=== PATIENT | male | born 1975 | race Caucasian/White ===

== ENCOUNTER 2016-08-17 21:33 | Emergency (ER) | payer SELFPAY ==
[~2016-08-17] VITALS: Ht 175.3 cm; Wt 90.5 kg
[2016-08-17 21:49] VITALS: BP 142/90; PULSE 71; RESP 16; TEMP 98.1; O2SAT 99
[2016-08-17 22:32] VITALS: BP 142/90; PULSE 71; RESP 16; TEMP 98.1; O2SAT 99
[2016-08-17] MEDS ORDERED: LOSA50TA PO (22:32)
[2016-08-17] MEDS ORDERED: AMLO10TA2 PO (22:35)
--- NOTE | 2016-08-17 22:35 | PD ---
HPI Chief Complaint: Hypertension Time Seen by Provider: 22:31 Travel History International Travel<30 days: No Contact w/Intl Traveler<30days: No Traveled to known affect area: No History of Present Illness HPI 41-year-old male from [place] here history of hypertension and running out of his losartan. Patient is unsure of his dose. She is requesting a refill as he is concerned about his blood pressure. Blood pressure in triage is 142/92. He is been having some headaches and hearing his pulse in his years. He denies any other issues. He does have history of hypercholesterol but no local primary care physician. He has no known drug allergies. PFS Social History Alcohol Use: No Tobacco Use: No Substance Use: No Review of Systems Except as stated in HPI: all other systems reviewed are Neg General / Constitutional: No: Fever Eyes: No: Visual changes HENT: No: Headaches Cardiovascular: No: Chest Pain or Discomfort Respiratory: No: Shortness of Breath Gastrointestinal: No: Abdominal Pain Genitourinary: No: Dysuria Musculoskeletal: No: Pain Skin: No Rash Neurologic: No: Weakness Psychiatric: No: Depression Endocrine: No: Polydipsia Hematologic/Lymphatic: No: Easy Bruising Physical Exam Narrative GENERAL: Patient appears in no acute distress. SKIN: Warm and dry. Normal color. Normal turgor. HEAD: Atraumatic. Normocephalic. EYES: Pupils equal and round. No scleral icterus. No injection or drainage. ENT: No nasal bleeding or discharge. Mucous membranes pink and moist. Pharynx is clear. Airway is patent. NECK: Trachea midline. Supple nontender. CARDIOVASCULAR: Regular rate and rhythm. RESPIRATORY: No accessory muscle use. Clear to auscultation. Breath sounds equal bilaterally. MUSCULOSKELETAL: Extremities without clubbing, cyanosis, or edema. No obvious deformities. NEUROLOGICAL: Awake and alert. No obvious cranial nerve deficits. Motor grossly within normal limits. Five out of 5 muscle strength in the arms and legs. Normal speech. PSYCHIATRIC: Appropriate mood and affect; insight and judgment normal. Data Data Last Documented VS Vital Signs Date Time Temp Pulse Resp B/P Pulse Ox O2 Delivery O2 Flow Rate FiO2 08/17/16 21:49 98.1 71 16 142/90 99 MDM Medical Decision Making Medical Screen Exam Complete: Yes Emergency Medical Condition: Yes Differential Diagnosis Hypertension. Hypercholesterolemia. Medication refill. Narrative Course Computer terminal operator is set up. Patient is medically stable at time of exam. Patient is given a prescription for amlodipine 10 mg daily #90. Patient referred to local primary care physician for further evaluation and treatment as needed. Patient can return with any problems as needed. Diagnosis Primary Impression: Encounter for medication refill Additional Impression: Hypertension Qualified Code: I10 - Essential hypertension Referrals: [facility] call for appointment Patient Instructions: 2 Gram Sodium Diet (GEN), General Instructions Additional Instructions: Patient is medically stable at time of exam. Patient is given a prescription for amlodipine 10 mg daily #90. Patient referred to local primary care physician for further evaluation and treatment as needed. Patient can return with any problems as needed. Disposition: 01 DISCHARGE HOME Condition: Stable Param López August 17, 2016 22:35
== END 2016-08-17 22:42 | disposition home or self-care (01) ==
LOC: PHED 21:33 → PHEFT 22:42
DX: I10 Essential (primary) hypertension (principal); Z76.0 Encounter for issue of repeat prescription
CPT/HCPCS: 99281